=== PATIENT | female | born 1985 | race Caucasian/White ===

== ENCOUNTER 2020-12-30 15:06 | Outpatient (CLI) | payer OTHER ==
[~2020-12-30 15:06] MED LIST: TYLENOL-CODEINE1 TAB PO
[2020-12-30] MEDS ORDERED: ADALAT CC30 MG PO (16:26)
== END 2020-12-30 16:35 | disposition home or self-care (01) ==
LOC: PRENATAL 15:06
PROVIDERS: ATTEND Obstetrics & Gynecology Maternal & Fetal Medicine
DX: O10.011 Pre-existing essential hypertension complicating pregnancy, first trimester (principal); O36.80X1 Pregnancy with inconclusive fetal viability, fetus 1; O09.511 Supervision of elderly primigravida, first trimester; Z36.89 Encounter for other specified antenatal screening; Z3A.14 14 weeks gestation of pregnancy

== ENCOUNTER 2021-02-08 13:24 | Outpatient (CLI) | payer OTHER ==
[~2021-02-08 13:24] MED LIST changes: +ADALAT CC30 MG PO
== END 2021-02-08 14:24 | disposition home or self-care (01) ==
LOC: PRENATAL 13:24
PROVIDERS: ATTEND Obstetrics & Gynecology Maternal & Fetal Medicine
DX: O35.0XX1 Maternal care for (suspected) central nervous system malformation in fetus, fetus 1 (principal); O35.3XX1 Maternal care for (suspected) damage to fetus from viral disease in mother, fetus 1; O98.512 Other viral diseases complicating pregnancy, second trimester; O10.012 Pre-existing essential hypertension complicating pregnancy, second trimester; O09.522 Supervision of elderly multigravida, second trimester; Z36.89 Encounter for other specified antenatal screening; Z3A.20 20 weeks gestation of pregnancy

== ENCOUNTER 2021-02-25 23:14 | Outpatient (CLI) | payer OTHER | END 2021-02-26 09:05 | disposition home or self-care (01) | LOC: OBS/DEL 23:14 → PRENATAL 04-07 09:00 | PROVIDERS: ATTEND Obstetrics & Gynecology | DX: O11.2 Pre-existing hypertension with pre-eclampsia, second trimester (principal); Z3A.22 22 weeks gestation of pregnancy ==

== ENCOUNTER 2021-04-07 09:12 | Outpatient (CLI) | payer OTHER | END 2021-04-07 09:52 | disposition home or self-care (01) | LOC: PRENATAL 09:12 | PROVIDERS: ATTEND Obstetrics & Gynecology Maternal & Fetal Medicine | DX: O26.843 Uterine size-date discrepancy, third trimester (principal); O10.13 Pre-existing hypertensive heart disease complicating the puerperium; O09.523 Supervision of elderly multigravida, third trimester; Z36.89 Encounter for other specified antenatal screening; Z3A.29 29 weeks gestation of pregnancy ==

== ENCOUNTER 2021-05-22 19:13 | Inpatient (IN) | payer OTHER ==
[~2021-05-22] VITALS: Ht 154.9 cm; Wt 78.9 kg
[2021-05-22] MEDS ORDERED: LABETALOL HCL200 MG PO (20:31)
[2021-05-22] MEDS ORDERED: CHILDREN'S ASPI81 MG PO (20:31)
[2021-06-04] MEDS ORDERED: Procardia Xl 30MG TA PO (08:52)
[2021-06-04] MEDS ORDERED: LABETALOL HCL200 MG PO (08:52)
== END 2021-06-04 13:37 | DRG 805 ==
LOC: LDR 19:13 → OB/GYN 05-23 16:09
PROVIDERS: ADMIT Obstetrics & Gynecology; ATTEND Obstetrics & Gynecology
PROC: 4A1HXCZ Monitoring of Products of Conception, Cardiac Rate, External Approach (ICD-10-PCS; 2021-05-22)
PROC: 10E0XZZ Delivery of Products of Conception, External Approach (ICD-10-PCS; principal; 2021-06-02)
PROC: 0KQM0ZZ Repair Perineum Muscle, Open Approach (ICD-10-PCS; 2021-06-02)
DX: O70.1 Second degree perineal laceration during delivery (principal); O60.14X0 Preterm labor third trimester with preterm delivery third trimester, not applicable or unspecified; Z37.0 Single live birth; O13.3 Gestational [pregnancy-induced] hypertension without significant proteinuria, third trimester; Z3A.34 34 weeks gestation of pregnancy; Z20.822 Contact with and (suspected) exposure to COVID-19